=== PATIENT | male | born 1990 | race Caucasian/White ===

== ENCOUNTER 2022-01-20 21:37 | Emergency (ER) | payer OTHER, SELFPAY ==
[2022-01-20 21:46] VITALS: BP 186/87; PULSE 109; RESP 16; TEMP 37.1; O2SAT 100
[2022-01-20] MEDS: TETANUS,DIPHTHERIA,AC PERTUSSIS ADULT (0.5 ML) BOOSTRIX IM (22:04)
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
[2022-01-20] MEDS: SILVER SULFADIAZINE 1% CR 50 GM JAR (*BKC) 1 APPLIC TOPICAL (22:06)
[2022-01-20 22:12] VITALS: BP 131/78; PULSE 84; RESP 18; O2SAT 99
== END 2022-01-20 22:24 | disposition home or self-care (01) ==
PROVIDERS: Emergency Provider Nurse Practitioner Family
DX: T22.212A Burn of second degree of left forearm, initial encounter (principal); X10.1XXA Contact with hot food, initial encounter; T31.0 Burns involving less than 10% of body surface; Z23 Encounter for immunization
CPT/HCPCS: 90471; 90715; 99283; A9270